=== PATIENT | female | born 1980 | race Caucasian/White ===

== ENCOUNTER 2022-11-03 15:31 | Emergency (ER) | payer BC, MEDICAID, OTHER ==
[~2022-11-03] VITALS: Ht 167.6 cm; Wt 65.0 kg
[2022-11-03 15:32] VITALS: BP 129/77
--- NOTE | 2022-11-03 16:07 | NUR ---
Della Ward spoke with Tiffanie, .
== END 2022-11-03 23:21 | disposition home or self-care (01) ==
LOC: ER 15:32 → EEVIPCON 15:32 → ER 23:21
DX: T76.21XA Adult sexual abuse, suspected, initial encounter (principal)
CPT/HCPCS: 99284

== ENCOUNTER 2024-04-28 16:05 | Emergency (ER) | payer BC, MEDICAID ==
[~2024-04-28] VITALS: Ht 167.6 cm; Wt 65.7 kg
[2024-04-28 16:05] VITALS: BP 129/74; PULSE 100; TEMP 98; O2SAT 98
[2024-04-28] MEDS ORDERED: HYDR-3965 PO (17:44)
[2024-04-28 18:04] VITALS: RESP 16
== END 2024-04-28 18:08 | disposition home or self-care (01) ==
LOC: ER 16:05
DX: S90.31XA Contusion of right foot, initial encounter (principal); W22.8XXA Striking against or struck by other objects, initial encounter; Y93.89 Activity, other specified; Y92.89 Other specified places as the place of occurrence of the external cause; Y99.8 Other external cause status
CPT/HCPCS: 73630; 99283

== ENCOUNTER 2024-06-08 14:04 | Emergency (ER) | payer BC, MEDICAID ==
[~2024-06-08] VITALS: Ht 167.6 cm; Wt 61.0 kg
[2024-06-08 14:26] VITALS: BP 111/57; PULSE 89; TEMP 98; O2SAT 99
[2024-06-08] MEDS ORDERED: LIDOcaine 40mg/ml topical solution MM ONE (15:35)
[2024-06-08] MEDS: LIDOcaine 4% (40 mg/ml) topical solution 50ml MM ONE (15:46)
[2024-06-08 16:07] VITALS: RESP 18
== END 2024-06-08 16:08 | disposition home or self-care (01) ==
LOC: ER 14:04
DX: S61.214A Laceration without foreign body of right ring finger without damage to nail, initial encounter (principal); W25.XXXA Contact with sharp glass, initial encounter; Y93.89 Activity, other specified; Y92.89 Other specified places as the place of occurrence of the external cause; Y99.8 Other external cause status
CPT/HCPCS: 12001; 99282